=== PATIENT | female | born 1985 | race Caucasian/White ===

== ENCOUNTER 2018-03-14 21:17 | Outpatient (CLI) | payer OTHER, SELFPAY ==
[2018-03-14 21:18] VITALS: BP 116/68; PULSE 73; RESP 16; TEMP 36.1; BMI 23.6
[2018-03-14] MEDS: Rabies Vaccine,Human Diploid 2.5 UNITS Vial IM (22:47)
[2018-03-14] MEDS: Rabies Immune Globulin 150 UNITS/ML 1250 UNITS IM (22:49)
[2018-03-14] MEDS: Bupivacaine Mpf 0.5% 30 ML VIAL INFILT (23:46)
--- NOTE | 2018-03-14 23:50 | ED.VISSUMM ---
- ER Visit Summary Date of Service: 03/14/18 Chief Complaint: Cat bite History of Present Illness: The patient is a 32 F presenting for evaluation secondary to a cat bite. Patient is right-hand dominant. 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 She has had progressive swelling, now has some pain traveling up her arm. She denies constitutional symptoms such as fevers. Tetanus is up-to-date. Physical Examination: Vital signs within normal limits. Examination of the patient's right upper extremity shows a puncture wound just proximal and just distal to the midportion of the patient's dorsal index finger PIP. There is some fusiform swelling. Normal range of motion of the finger. Patient complains of pain going up her forearm and above her elbow, but no evidence of ascending lymphangitis. Test Results: None indicated Emergency Department Course and Treatment: Patient presented for evaluation secondary to a cat bite. She does have some evidence of infection. Patient was given a dose of Augmentin in the emergency department. Finger was blocked via digital block using 5 cc of bupivacaine. Good anesthesia was obtained. Finger tourniquet was placed, the patient's 2 puncture wounds were ellipsed and contaminated tissue was trimmed out with suture scissors. I explored the wounds, did not see any foreign bodies. An 18-gauge catheter was placed in the proximal wound, and then pressure irrigation was pushed through the wound, and the saline actually squirted out of the more distal wound indicating that these communicate. This was copiously irrigated. Patient was given a rabies series, and a small amount of rabies immunoglobulin was injected around the patient's finger. There is some risk for the possibility of joint capsule involvement at this point, so the patient will be given orthopedics to follow-up with. She was placed in AlumaFoam splint. She will be sent home on Augmentin. She was given strict return instructions including fever, worsening pain, significant drainage. She was instructed that she needs to follow-up with orthopedics in 1-2 days. She voiced understanding of this and the patient was discharged. Disposition: Discharge Impression: 1. Bite right index finger 2. Incision and drainage by ED physician This note was generated with [employer] software. It may contain incorrect words, spelling, and punctuation that were not noted in review of the chart prior to signing ED Disposition - Plan for ED Patient: Disposition: Home or Assisted Living Chief Complaint: Bite Diagnosis: Cat bite Instructions: ED Bite Cat Prescriptions: Amox/Clavulanate Tablet [Augmentin Tablet] 875 mg PO Q12H #20 tab Referrals: Germaine Crenshaw DO [STAFF PHYSICIAN] - 2 Days for wound check
--- NOTE | 2018-03-14 23:54 | ED.DCSUM_ITS ---
- ER Visit Summary Date of Service: 03/14/18 Chief Complaint: Cat bite History of Present Illness: The patient is a 32 F presenting for evaluation secondary to a cat bite. Patient is right-hand dominant. 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 She has had progressive swelling, now has some pain traveling up her arm. She denies constitutional symptoms such as fevers. Tetanus is up-to-date. Physical Examination: Vital signs within normal limits. Examination of the patient's right upper extremity shows a puncture wound just proximal and just distal to the midportion of the patient's dorsal index finger PIP. There is some fusiform swelling. Normal range of motion of the finger. Patient complains of pain going up her forearm and above her elbow, but no evidence of ascending lymphangitis. Test Results: None indicated Emergency Department Course and Treatment: Patient presented for evaluation secondary to a cat bite. She does have some evidence of infection. Patient was given a dose of Augmentin in the emergency department. Finger was blocked via digital block using 5 cc of bupivacaine. Good anesthesia was obtained. Finger tourniquet was placed, the patient's 2 puncture wounds were ellipsed and contaminated tissue was trimmed out with suture scissors. I explored the wounds, did not see any foreign bodies. An 18-gauge catheter was placed in the proximal wound, and then pressure irrigation was pushed through the wound, and the saline actually squirted out of the more distal wound indicating that these communicate. This was copiously irrigated. Patient was given a rabies series, and a small amount of rabies immunoglobulin was injected around the patient's finger. There is some risk for the possibility of joint capsule involvement at this point, so the patient will be given orthopedics to follow-up with. She was placed in AlumaFoam splint. She will be sent home on Augmentin. She was given strict return instructions including fever, worsening pain, significant drainage. She was instructed that she needs to follow-up with orthopedics in 1- 2 days. She voiced understanding of this and the patient was discharged. Disposition: Discharge Impression: 1. Bite right index finger 2. Incision and drainage by ED physician This note was generated with [employer] software. It may contain incorrect words, spelling, and punctuation that were not noted in review of the chart prior to signing ED Disposition - Plan for ED Patient: Disposition: Home or Assisted Living Chief Complaint: Bite Diagnosis: Cat bite Instructions: ED Bite Cat Prescriptions: Amox/Clavulanate Tablet [Augmentin Tablet] 875 mg PO Q12H #20 tab Referrals: Germaine Crenshaw DO [STAFF PHYSICIAN] - 2 Days for wound check
[2018-03-14] MEDS: Amox/Clavulanate 875 MG Tablet PO (23:55)
[2018-03-15 00:15] VITALS: BP 110/70; PULSE 69; RESP 14; O2SAT 98
--- OUTSIDE RECORDS SUMMARY | 2018-05-23 16:46 | XMS RPT_ITS ---
:1985 Author Organization OHIP Care Team Providers Name Role Phone RENEA ALVARENGAAM Referring Unavailable OLDER, MICAELA BELLO) Attending Unavailable OLDER, MICAELA (LUKAS) Referring Unavailable OLDER, MICAELA (LUKAS) Referring Unavailable SHANE LOCK Attending Unavailable SHANE LOCK Referring Unavailable Rusia, Deepam Admitting Unavailable Rusia, Deepam Attending Unavailable Rusia, Deepam Primary Care Unavailable PROVIDER, ED PHYSICIAN Attending Unavailable Aaron Aragon Primary Care Unavailable PROVIDER, ED PHYSICIAN Attending Unavailable Aaron Aragon Primary Care Unavailable Aaron Aragon Primary Care Unavailable APRIL BALLESTEROS Attending Unavailable Sidney Dickens Attending Unavailable Aaron Aragon Primary Care Unavailable PROBLEMS PROBLEMS DATE TYPE CONDITION / CODE ATTENDING STATUS SOURCE 03/15/2018 Active Open bite of other NA Active [facility] finger without [place] damage to nail, Repository subsequent encounter / S61.258D(ICD-10) 03/15/2018 Active Bitten by cat, NA Active [facility] subsequent [place] encounter / Repository W55.01XD(ICD-10) 03/28/2018 Unknown S61.230A - Sidney Dickens Active [place] Puncture wound [facility] without foreign Hospital body of right Repository index finger without damage to nail, initial encounter / S61.230A(ICD-10) 02/10/2018 Active Encounter for NA Active [facility] immunization / [place] Z23(ICD-10) Repository 09/22/2017 Active Unknown / NA Active [facility] UNK(Unknown) Other [place] Repository 09/20/2017 Active Encounter for Active [facility] screening for [place] respiratory Repository tuberculosis / Z11.1(ICD-10) PROCEDURES PROCEDURES No Procedure Records FoundRESULTS RESULTS PROGRESS Observed: 03/15/2018 Status: COMPLETED Source: [place] 2:26 PM [facility] REPOSITORY HNO ID: [id number] Author: Shane Lock Service: (none) Author Type: Physician Type: Progress Notes Filed: 03/15/2018 2:34 PM Note Text: This note was created using NanoDetection Technology. Subjective Patricio Walter is a 32 year old female here for ER follow up. PCP No primary care provider on file. 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 She was started on Augmentin and referred to ER for further evaluation. IANDD was done at the ER and orthopedic follow up was recommended. Rabies immunization was initiated. She was taking her antibiotic. Review of Systems Constitutional: Negative for chills, diaphoresis and fever. Musculoskeletal: Positive for joint swelling. Skin: Positive for color change and wound. Objective BP 106/62 (BP Site: Left Arm, BP Position: Sitting, BP Cuff Size: Regular Adult) Pulse 68 Temp (!) 35.8 ?C (96.4 ?F) (Left Tympanic) Resp 16 Wt 61.7 kg (136 lb) BMI 23.51 kg/m? Physical Exam Constitutional: No distress. Musculoskeletal: Puncture wounds of the right PIP joint with swelling, tenderness of the digit. Right hand with some dorsal swelling. Lymphangitic streaking noted up to middle of dorsal forearm. Assessment and Plan 1. Cat bite of index finger, subsequent encounter - ICD9: V58.89, 883.0, ICD10: S61.258D, W55.01XD See printed instructions or information. Close follow up recommended. Labs ordered. See orthopedics as scheduled tomorrow. Continue Augmentin. - CBC - BASIC METABOLIC PNL - SED RATE WESTERGREN - C-REACTIVE PROTEIN (CRP) Shane Lock MD CBC Collected: 03/15/2018 Status: F Source: [place] 2:21 PM [facility] REPOSITORY TYPE CODE TESTS RESULT OUT OF REFERENCE UNITS RANGE LAB WBC 3.70-11.00 k/uL WBC 7.85 LAB RBC 3.90-5.20 m/uL RBC 4.55 LAB HGB 11.5-15.5 g/dL Hemoglobin 13.9 LAB HCT 36.0-46.0 % Hematocrit 41.8 LAB MCV 80.0-100.0 fL MCV 91.9 LAB MCH 26.0-34.0 pG MCH 30.5 LAB MCHC 30.5-36.0 g/dL MCHC 33.3 LAB RDWCV 11.5-15.0 % RDW-CV 12.6 LAB PLTCT 150-400 k/uL Platelet Count 215 LAB MPV 9.0-12.7 fL MPV 9.4 LAB ABSNUC <0.01 k/uL Absolute nRBC <0.01 Performed By: #### CBC, WSR, BMP, CRP #### [facility] [address], [place] [address] SED RATE WESTERGREN Collected: 03/15/2018 Status: F Source: [place] 2:21 PM [facility] REPOSITORY TYPE CODE TESTS RESULT OUT OF REFERENCE UNITS RANGE LAB WSR 0-20 mm/hr Sed Rate Westergren 2 Performed By: #### CBC, WSR, BMP, CRP #### [facility] [place] [address], [place] [address] BASIC METABOLIC PANL Collected: 03/15/2018 Status: F Source: [place] 2:21 PM [facility] REPOSITORY TYPE CODE TESTS RESULT OUT OF REFERENCE UNITS RANGE LAB GLU 74-99 mg/dL Glucose 88 Result Comment: The [place] [employer] (ADA) provides guidance for cutoff values for fasting glucose and random glucose. The ADA defines fasting as no caloric intake for at least 8 hours. Fas ting plasma glucose results between 100 to 125 mg/dL indicate increased risk for diabetes (prediabetes). Fasting plasma glucose results greater than or equal to 126 mg/dL meet the criteria for diagnosis of diabetes. In the absence of unequivocal hyperglycemia, results should be confirmed by repeat testing. In a patient with classic symptoms of hyperglycemia or hyperglycemic crisis, random plasma glucose results greater than or equal to 200 mg/dL meet the criteria for diagnosis of diabetes. Reference: Standards of Medical Care in Diabetes 2016, [place] [employer]. Diabetes Care. 2016.39(Suppl 1). LAB BUN 7-21 mg/dL BUN 9 LAB CRET 0.58-0.96 mg/dL Creatinine 0.61 LAB NA 136-144 mmol/L Sodium 144 LAB K 3.7-5.1 mmol/L Potassium 4.1 LAB CL 97-105 mmol/L Chloride High 106 LAB CO2 22-30 mmol/L CO2 25 LAB AGAP 9-18 mmol/L Anion Gap 13 LAB CA 8.5-10.2 mg/dL Calcium, Total 9.2 LAB GFRAA eGFR- Amer. >60 LAB GFRNAA . eGFR-All Other Races >60 Result Comment: eGFR (Estimated GFR) Units of measure: mL/min/1.73 meters squared eGFR is derived from the reexpressed MDRD Study equation using the following parameters: serum creatinine, age, gender and race. The creatinine assay has been calibrated to be traceable to IDMS. An eGFR <60 mL/min/1.73m2 for >3 months is consistent with chronic kidney disease. Refer to KDOQI guidelines for clinical interpretation. In patients with unstable renal function, e.g. those with acute kidney injury, the eGFR may not accurately reflect actual GFR. Performed By: #### CBC, WSR, BMP, CRP #### [facility] [place] [address] [place], [place] [address] C-REACTIVE PROTEIN Collected: 03/15/2018 Status: F Source: [place] 2:21 PM [facility] REPOSITORY TYPE CODE TESTS RESULT OUT OF REFERENCE UNITS RANGE LAB CRP <0.9 mg/dL C-Reactive 0.4 Protein Performed By: #### CBC, WSR, BMP, CRP #### [facility] [place] [address] [place], [place] [address] 164-17 CNOV Observed: 03/15/2018 Status: COMPLETED Source: [place] 1:20 PM [facility] [place] REPOSITORY Office Visit (INTMWS) PATRICIO WALTER ([id number]) 1985 F Date Time Provider Department 03/15/18 1:20 PM SHANE LOCK INTMWS During your visit today, we recorded the following information about you: Temperature Pulse Respiration Blood pressure 96.4 degrees 68/minute 16/minute 106/62 Weight 61.7 kg Shane Lock MD 03/15/2018 2:07 PM Signed Keep area clean and dry. Change dressing if becomes wet or soiled. Return sooner if area has increased swelling, increased pain, warmth, increased redness, drainage , thick , yellow and or green. Shane Lock MD 03/15/2018 2:34 PM Signed This note was created using Nano[employer] Technology. Subjective Patricio Walter is a 32 year old female here for ER follow up. PCP No primary care provider on file. 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 She was started on Augmentin and referred to ER for further evaluation. IANDD was done at the ER and orthopedic follow up was recommended. Rabies immunization was initiated. She was taking her antibiotic. Review of Systems Constitutional: Negative for chills, diaphoresis and fever. Musculoskeletal: Positive for joint swelling. Skin: Positive for color change and wound. Objective BP 106/62 (BP Site: Left Arm, BP Position: Sitting, BP Cuff Size: Regular Adult) Pulse 68 Temp (!) 35.8 ?C (96.4 ?F) (Left Tympanic) Resp 16 Wt 61.7 kg (136 lb) BMI 23.51 kg/m? Physical Exam Constitutional: No distress. Musculoskeletal: Puncture wounds of the right PIP joint with swelling, tenderness of the digit. Right hand with some dorsal swelling. Lymphangitic streaking noted up to middle of dorsal forearm. Assessment and Plan 1. Cat bite of index finger, subsequent encounter - ICD9: V58.89, 883.0, ICD10: S61.258D, W55.01XD See printed instructions or information. Close follow up recommended. Labs ordered. See orthopedics as scheduled tomorrow. Continue Augmentin. - CBC - BASIC METABOLIC PNL - SED RATE WESTERGREN - C-REACTIVE PROTEIN (CRP) Shane Lock MD Referring Provider: SELF [200] Allergies As of Date: 03/15/2018 (No Known Allergies) Date Reviewed: 03/15/2018 Reviewed by: Chelo Bella LPN - Fully Assessed Reason for Visit: Recheck [92] Cmt: Urgent care and emergency room follow up Cat bite left 2nd digit Primary Visit Diagnosis:Cat bite of index finger, subsequent encounter [S61.258D, W55.01XD] Order(s):CBC [SQCBC] Order #: [id number] FUTURE BASIC METABOLIC PNL [SQBMP] Order #: [id number] FUTURE SED RATE WESTERGREN [SQWSR] Order #: [id number] FUTURE C-REACTIVE PROTEIN (CRP) [SQCRP] Order #: [id number] FUTURE Prescriptions as of 03/15/2018 Sig: AMOXICILLIN 875 MG-POTASSIUM * Take 1 tablet by mouth twice * Problem List As Of Date: 03/15/2018 (None) Other instructions from your clinician: Keep area clean and dry. Change dressing if becomes wet or soiled. Return sooner if area has increased swelling, increased pain, warmth, increased redness, drainage , thick , yellow and or green. Disposition: Return if symptoms worsen or fail to improve. Follow-up and Disposition History Recorded Encounter Status:Closed by SHANE LOCK MD on 03/15/18 EMERGENCY DEPARTMENT Observed: 03/15/2018 Status: F Source: [place] SUMMARY 12:43 AM [facility] REPOSITORY [facility] Medical Records Department [address] [place] [address] Emergency Department Summary 03/14/18 2190 MR#: [id number] Acct: [id number] Name: PATRICIO WALTER Rep #: [id number] : 1985 32 From: Sidney Dickens MD PCP: Aaron Aragon MD Status: DEP ER - ER Visit Summary Date of Service: 03/14/18 Chief Complaint: Cat bite History of Present Illness: The patient is a 32 F presenting for evaluation secondary to a cat bite. Patient is right-hand dominant. 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 She has had progressive swelling, now has some pain traveling up her arm. She denies constitutional symptoms such as fevers. Tetanus is up-to-date. Physical Examination: Vital signs within normal limits. Examination of the patient's right upper extremity shows a puncture wound just proximal and just distal to the midportion of the patient's dorsal index finger PIP. There is some fusiform swelling. Normal range of motion of the finger. Patient complains of pain going up her forearm and above her elbow, but no evidence of ascending lymphangitis. Test Results: None indicated Emergency Department Course and Treatment: Patient presented for evaluation secondary to a cat bite. She does have some evidence of infection. Patient was given a dose of Augmentin in the emergency department. Finger was blocked via digital block using 5 cc of bupivacaine. Good anesthesia was obtained. Finger tourniquet was placed, the patient's 2 puncture wounds were ellipsed and contaminated tissue was trimmed out with suture scissors. I explored the wounds, did not see any foreign bodies. An 18-gauge catheter was placed in the proximal wound, and then pressure irrigation was pushed through the wound, and the saline actually squirted out of the more distal wound indicating that these communicate. This was copiously irrigated. Patient was given a rabies series, and a small amount of rabies immunoglobulin was injected around the patient's finger. There is some risk for the possibility of joint capsule involvement at this point, so the patient will be given orthopedics to follow-up with. She was placed in AlumaFoam splint. She will be sent home on Augmentin. She was given strict return instructions including fever, worsening pain, significant drainage. She was instructed that she needs to follow-up with orthopedics in 1-2 days. She voiced understanding of this and the patient was discharged. Disposition: Discharge Impression: 1. Bite right index finger 2. Incision and drainage by ED physician This note was generated with XLerant dictation software. It may contain incorrect words, spelling, and punctuation that were not noted in review of the chart prior to signing ED Disposition - Plan for ED Patient: Disposition: Home or Assisted Living Chief Complaint: Bite Diagnosis: Cat bite Instructions: ED Bite Cat Prescriptions: Amox/Clavulanate Tablet [Augmentin Tablet] 875 mg PO Q12H #20 tab Referrals: Germaine Crenshaw DO [STAFF PHYSICIAN] - 2 Days for wound check What to do if you have Problems For any increased pain, shortness of breath, bleeding, nausea or vomiting, chest pain, or any unexpected problems, contact your Primary Care Provider. Call [facility] ([phone]) or report to the closest Emergency Room. Call 911 if necessary. 03/15/18 0043 <Electronically signed by Sidney Dickens MD> Date Sidney Dickens MD Cosigner Signature (If Indicated): Date CC: Aaron Aragon MD CNOV Observed: 03/14/2018 Status: COMPLETED Source: [place] 8:45 PM [facility] REPOSITORY Office Visit (WSTR) PATRICIO WALTER ([id number]) 1985 F Date Time Provider Department 03/14/18 8:45 PM SINDY MACK ([facility]) WSTR During your visit today, we recorded the following information about you: Temperature Pulse Respiration Blood pressure 97.2 degrees 74/minute 16/minute 112/80 Weight 62.1 kg Sindy Mack APRN.CNP 03/14/2018 9:00 PM Signed Subjective Patricio Walter is a 32 year old female who presents with a cat bite on her right index finger that happened today approximately 9 hours ago. 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 The cat was a stray, she is unsure of vaccination status. The cat was euthanized due to infection with feline leukemia. She is up to date on her tetanus vaccine. Review of Systems Constitutional: Negative. Negative for chills and fever. Gastrointestinal: Negative for nausea and vomiting. Musculoskeletal: Positive for myalgias (pain in right forearm). Negative for joint pain. Skin: Negative. BP 112/80 Pulse 74 Temp 36.2 ?C (97.2 ?F) (Tympanic) Resp 16 Wt 62.1 kg (136 lb 12.8 oz) BMI 23.64 kg/m? PAST MEDICAL HISTORY Diagnosis Date - MRSA (methicillin resistant Staphylococcus aureus) infection 2013 PAST SURGICAL HISTORY Procedure Laterality Date - NONE ALLERGIES Patient has no known allergies. MEDICATIONS CLOMIPHENE CITRATE (CLOMID ORAL) Take by mouth. METFORMIN HCL (GLUCOPHAGE ORAL) Take by mouth. FAMILY HISTORY Problem Relation Age of Onset - Diabetes Mother - Lipids Mother - Diabetes Father - Hypertension Father - Coronary Artery Disease Father 40 multiple [place] - None Sister - None Brother Social History Substance Use Topics - Smoking status: Never Smoker - Smokeless tobacco: Never Used - Alcohol use Yes Comment: rare Objective Physical Exam Constitutional: She is well-developed, well-nourished, and in no distress. Musculoskeletal: Hands: Skin: Skin is warm and dry. No erythema. Nursing note and vitals reviewed. ASSESSMENT/PLAN: 1. Cat bite, initial encounter - ICD9: 879.8, E906.3, ICD10: W55.01XA - AMOXICILLIN 875 MG-POTASSIUM CLAVULANATE 125 MG TABLET - testing of animal and rabies vaccine is recommended. May get at health department or emergency room. - Follow-up with your PCP in 3-5 days if symptoms have not improved or sooner if symptoms worsen - Discussed red flags and need for immediate medical evaluation if any occur. - Discussed supportive care treatment with fluids, rest and analgesia. - Discussed expected course of illness BLANCHE Chong APRN.LUKAS 03/14/2018 8:54 PM Signed ASSESSMENT/PLAN: 1. Cat bite, initial encounter - ICD9: 879.8, E906.3, ICD10: W55.01XA - AMOXICILLIN 875 MG-POTASSIUM CLAVULANATE 125 MG TABLET - testing of animal and rabies vaccine is recommended. May get at health department or emergency room. - Follow-up with your PCP in 3-5 days if symptoms have not improved or sooner if symptoms worsen - Discussed red flags and need for immediate medical evaluation if any occur. - Discussed supportive care treatment with fluids, rest and analgesia. - Discussed expected course of illness Sindy Mack APRN.CNP Referring Provider: SELF [200] Allergies As of Date: 03/14/2018 (No Known Allergies) Date Reviewed: 03/14/2018 Reviewed by: Sindy (Lukas) Frederick - Fully Assessed Reason for Visit: cat bite right hand/arm [Other] Cmt: x 8 hours-now with pain and tightness Primary Visit Diagnosis:Cat bite, initial encounter [W55.01XA] Order(s):amoxicillin-clavulanic acid (AUGMENTIN) 875-125 mg per tabletTake 1 tablet by mouth twice daily for 10 days.Disp: 20 tabletRfl: 0 Prescriptions as of 03/14/2018 Sig: AMOXICILLIN 875 MG-POTASSIUM * Take 1 tablet by mouth twice * Problem List As Of Date: 03/14/2018 (None) Other instructions from your clinician: ASSESSMENT/PLAN: 1. Cat bite, initial encounter - ICD9: 879.8, E906.3, ICD10: W55.01XA - AMOXICILLIN 875 MG-POTASSIUM CLAVULANATE 125 MG TABLET - testing of animal and rabies vaccine is recommended. May get at health department or emergency room. - Follow-up with your PCP in 3-5 days if symptoms have not improved or sooner if symptoms worsen - Discussed red flags and need for immediate medical evaluation if any occur. - Discussed supportive care treatment with fluids, rest and analgesia. - Discussed expected course of illness Sindy Mack APRN.CNP Prescriptions ordered this encounter Disp Refills Start End AMOXICILLIN 875 MG-POTASSIUM CLAVULA* 20 t* 0 03/14/2018 03/24/2018 Route: ORAL Sig: Take 1 tablet by mouth twice daily for 10 days. Medications Discontinued During This Encounter CLOMIPHENE CITRATE (CLOMID ORAL) 03/14/2018 Class: Historical Med Route: ORAL Sig: Take by mouth. Disc: Reason for discontinue is not on file. METFORMIN HCL (GLUCOPHAGE ORAL) 03/14/2018 Class: Historical Med Route: ORAL Sig: Take by mouth. Disc: Reason for discontinue is not on file. Encounter Status:Closed by SINDY MACK on 03/14/18 PROGRESS Observed: 03/14/2018 Status: COMPLETED Source: [place] 8:44 PM [facility] [place] REPOSITORY O ID: [id number] Author: Sindy ([facility]) Frederick Service: (none) Author Type: Nurse Practitioner Type: Progress Notes Filed: 03/14/2018 9:00 PM Note Text: Subjective Patricio Walter is a 32 year old female who presents with a cat bite on her right index finger that happened today approximately 9 hours ago. 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 The cat was a stray, she is unsure of vaccination status. The cat was euthanized due to infection with feline leukemia. She is up to date on her tetanus vaccine. Review of Systems Constitutional: Negative. Negative for chills and fever. Gastrointestinal: Negative for nausea and vomiting. Musculoskeletal: Positive for myalgias (pain in right forearm). Negative for joint pain. Skin: Negative. BP 112/80 Pulse 74 Temp 36.2 ?C (97.2 ?F) (Tympanic) Resp 16 Wt 62.1 kg (136 lb 12.8 oz) BMI 23.64 kg/m? PAST MEDICAL HISTORY Diagnosis Date - MRSA (methicillin resistant Staphylococcus aureus) infection 2013 PAST SURGICAL HISTORY Procedure Laterality Date - NONE ALLERGIES Patient has no known allergies. MEDICATIONS CLOMIPHENE CITRATE (CLOMID ORAL) Take by mouth. METFORMIN HCL (GLUCOPHAGE ORAL) Take by mouth. FAMILY HISTORY Problem Relation Age of Onset - Diabetes Mother - Lipids Mother - Diabetes Father - Hypertension Father - Coronary Artery Disease Father 40 multiple [place] - None Sister - None Brother Social History Substance Use Topics - Smoking status: Never Smoker - Smokeless tobacco: Never Used - Alcohol use Yes Comment: rare Objective Physical Exam Constitutional: She is well-developed, well-nourished, and in no distress. Musculoskeletal: Hands: Skin: Skin is warm and dry. No erythema. Nursing note and vitals reviewed. ASSESSMENT/PLAN: 1. Cat bite, initial encounter - ICD9: 879.8, E906.3, ICD10: W55.01XA - AMOXICILLIN 875 MG-POTASSIUM CLAVULANATE 125 MG TABLET - testing of animal and rabies vaccine is recommended. May get at health department or emergency room. - Follow-up with your PCP in 3-5 days if symptoms have not improved or sooner if symptoms worsen - Discussed red flags and need for immediate medical evaluation if any occur. - Discussed supportive care treatment with fluids, rest and analgesia. - Discussed expected course of illness Sindy Mack APRN.SERVICE ELECTRICIAN CNNURSE Observed: 02/10/2018 Status: COMPLETED Source: [place] 10:10 AM [facility] REPOSITORY Nurse Visit (CORWST) PATRICIO WALTER ([id number]) 1985 F Date Time Provider Department 02/10/18 10:10 AM NURSE [facility] During your visit today, we recorded the following information about you: Rachel Cheyanne HERNANDEZ 02/10/2018 10:08 AM Signed 32 year old female here for INACTIVATED INFLUENZA VACCINE. 9436-3443 Season Patient is identified by name and date of : Yes [] CONTRAINDICATIONS color enhanced section Age less than 6 months? No Allergy to eggs, chicken, chicken feathers, or chicken dander? No Allergy to thimerosal (a preservative) or formaldehyde, gelatin? No History of severe reaction to any vaccine component or a previous dose of influenza vaccination? No History of Guillain-[place] Syndrome within 6 weeks after a previous influenza vaccine? No Patient is not moderately or severely ill? No Current temperature greater or equal to 100.4F? No History of Bone Marrow Transplant prior 6 months or solid organ transplant in the past 3 months ? No History of fainting after a prior injection or medical procedure? No- ? If patient has fainted in the past, the CDC recommends sitting or lying down for 15 minutes after the vaccination. [] VERIFICATION color enhanced section Was the answer Yes for any of the above contraindications? No contraindications present. Acceptable to proceed with vaccine. Patient/guardian agrees the above answers are true to the best of their knowledge? Yes Flu vaccine information sheet given? Yes See immunization activity in [facility] for details of immunizations adminstered today. Patient age: [age] year old For The 9766-0577 Flu Season 6-35 months old: Fluzone 0.25 ml - IM (Preservative Free) 3 years of age: Fluzone 0.5 ml - IM (Preservative Free) 3 years and older: Fluzone 0.5 ml- IM-(with Preservatives) 65+ years old: 2-49 years old Fluzone High-Dose 0.5 ml - IM (Preservative Free) FLUMIST- intranasal REMEMBER: If patient is less than 9 years of age and this is the first vaccine of Influenza to be received in any flu season, they should receive a second dose in one months time. Referring Provider: SELF [200] Allergies As of Date: 02/10/2018 (No Known Allergies) Date Reviewed: 09/20/2017 Reviewed by: Patric Hall Bankruptcy Attorney - Fully Assessed Reason for Visit: Imm/Inj [58] Cmt: Flu Vaccine Primary Visit Diagnosis:Need for vaccination [Z23] Order(s):INFLUENZA VACCINE QUADRIVALENT AGE 3 YRS PLUS + IM [[id number]] Order #: [id number] Prescriptions as of 02/10/2018 Sig: CLOMID ORAL Take by mouth. GLUCOPHAGE ORAL Take by mouth. Problem List As Of Date: 02/10/2018 (None) Encounter Status:Closed by RACHEL LOVELACE LPN on 02/10/18 PROGRESS Observed: 02/06/2018 Status: COMPLETED Source: [place] 3:58 PM [facility] [place] REPOSITORY O ID: [id number] Author: Rachel Lovelace LPN Service: (none) Author Type: (none) Type: Progress Notes Filed: 02/10/2018 10:08 AM Note Text: 32 year old female here for INACTIVATED INFLUENZA VACCINE. 4252-2444 Season Patient is identified by name and date of : Yes [] CONTRAINDICATIONS color enhanced section Age less than 6 months? No Allergy to eggs, chicken, chicken feathers, or chicken dander? No Allergy to thimerosal (a preservative) or formaldehyde, gelatin? No History of severe reaction to any vaccine component or a previous dose of influenza vaccination? No History of Guillain-[place] Syndrome within 6 weeks after a previous influenza vaccine? No Patient is not moderately or severely ill? No Current temperature greater or equal to 100.4F? No History of Bone Marrow Transplant prior 6 months or solid organ transplant in the past 3 months ? No History of fainting after a prior injection or medical procedure? No- ? If patient has fainted in the past, the CDC recommends sitting or lying down for 15 minutes after the vaccination. [] VERIFICATION color enhanced section Was the answer Yes for any of the above contraindications? No contraindications present. Acceptable to proceed with vaccine. Patient/guardian agrees the above answers are true to the best of their knowledge? Yes Flu vaccine information sheet given? Yes [facility] for details of immunizations adminstered today. Patient age: [age] year old For The 7890-0975 Flu Season 6-35 months old: Fluzone 0.25 ml - IM (Preservative Free) 3 years of age: Fluzone 0.5 ml - IM (Preservative Free) 3 years and older: Fluzone 0.5 ml- IM-(with Preservatives) 65+ years old: 2-49 years old Fluzone High-Dose 0.5 ml - IM (Preservative Free) FLUMIST- intranasal REMEMBER: If patient is less than 9 years of age and this is the first vaccine of Influenza to be received in any flu season, they should receive a second dose in one months time. RPR Collected: 10/21/2017 Status: F Source: [place] 8:50 AM [facility] REPOSITORY TYPE CODE TESTS RESULT OUT OF REFERENCE UNITS RANGE LAB RPR Non Reactive RPR Non Reactive Performed By: #### RPR, TPAG #### [facility] [address] [address] #### NMOIFA #### [facility] [address] [address] [phone] T. PALLIDUM AB IGG Collected: 10/21/2017 Status: F Source: [place] 8:50 AM [facility] REPOSITORY TYPE CODE TESTS RESULT OUT OF REFERENCE UNITS RANGE LAB TPAGQL Negative T. pallidum IgG Negative Qual Result Comment: A negative result indicates that no, or very low levels of antibody are present in the sample, but does not rule out a recent or current infection. LAB TPABG Index Value T. pallidum, IgG .1 Result Comment: Index Values/OD Ratios are interpreted as follows: Negative specimens <0.8 Equivocal specimens 0.8 to 1.2 Positive specimens >1.2 The magnitude of the measured result above the cut-off is not indicative of the total amount of antibody present. Performed By: #### RPR, TPAG #### [facility] [address] #### NMOIFA #### [facility] [address] [place] [address] [phone] NMO AQ 4 IGG Collected: 10/21/2017 Status: F Source: [place] 8:50 AM [facility] REPOSITORY TYPE CODE TESTS RESULT OUT OF REFERENCE UNITS RANGE LAB NMOIF <1:10 NMO Aq 4 <1:10 IgG Result Comment: (NOTE) Aquaporin-4 Receptor Antibody, IgG is not detected. No further testing will be performed. INTERPRETIVE INFORMATION: Neuromyelitis Optica/AQP4-IgG w/Rfx, Ser Diagnosis of neuromyelitis optica (NMO) requires the presence of longitudinally extensive acute myelitis (lesions extending over 3 or more vertebral segments) and optic neuritis. Approximately 75 percent of patients with NMO express antibodies to the aquaporin-4 (AQP4) receptor. While the absence of AQP4 receptor antibodies does not rule out a diagnosis of NMO, presence of this antibody is diagnostic for NMO. Test developed and characteristics determined by [facility]. See Compliance Statement D: [employer]/CS Performed by [facility], [address] [place] [id number] [email or web address], Kameron Wood MD, Lab. Director Performed By: #### DEBBY, TPAG #### [facility] [address] [address] #### NMOIFA #### [facility] [address] [place] [address] [phone] MRI BRAIN WO/W Observed: 09/22/2017 Status: F Source: [facility] 7:59 PM CLINIC OTHER CAMPUS REPOSITORY * * *Final Report* * * DATE OF EXAM: Sep 22 2017 7:59PM [facility] 0295 - MRI BRAIN WO/W IVCON / PROCEDURE REASON: H46.02 OPTIC PAPPILITIS LEFT EYE * * * * Physician Interpretation * * * * EXAMINATION: MRI BRAIN WO/W IVCON CLINICAL HISTORY: H46.02 OPTIC PAPILLITIS LEFT EYE TECHNIQUE: Routine brain MRI protocol without and with contrast including diffusion images. MQ: MRBWOW_2 Contrast: 13ML mL Dotarem IV COMPARISON: None. RESULT: Acute Change: There is no evidence of restricted diffusion to suggest an acute infarct. Hemorrhage: No evidence of prior parenchymal hemorrhage on the gradient echo images. Mass Lesion/ Mass Effect: No evidence of an intracranial mass or extra-axial fluid collection. No significant mass effect. Chronic Change: The white matter is within normal limits of signal intensity for age. Parenchyma: No significant volume loss for age. The brain parenchyma is otherwise within normal limits of signal intensity and morphology. There is abnormal T2 signal involving the cisternal component of the left optic nerve, extending into the orbital apex. This also shows abnormal enhancement. T2 signal of the right optic nerve is normal. However, there is questioned minimal abnormal enhancement in the same distribution. Optic chiasm appears normal. Visual radiations and visual cortex are normal. No additional abnormal enhancement present. Ventricles: Normal caliber and morphology. Skull Base: Hypothalamic and pituitary region are grossly normal. Craniocervical junction is normal. No significant marrow replacement process. Vasculature: Major intracranial arterial structures, and dural venous sinuses show typical flow void, suggesting patency by spin echo criteria. Other: The visualized paranasal sinuses and mastoid air cells are clear. The orbits and extracranial soft tissues are unremarkable. IMPRESSION: Abnormal signal and enhancement involving the cisternal to proximal orbital portions of the left optic nerve of presumed optic neuritis. Questionable mild abnormal enhancement without T2 abnormality involving similar distribution of the right optic nerve. Remainder the examination is normal. Hydrographer[facility] Transcribe Date/Time: Sep 22 2017 8:36P Dictated by : NATASHA CARTY MD This examination was interpreted and the report reviewed and electronically signed by: NATASHA CARTY MD on Sep 22 2017 8:42PM EST [id number] CNNURSE Observed: 09/22/2017 Status: COMPLETED Source: [place] 3:00 PM [facility] REPOSITORY Nurse Visit (FAMPWS) PATRICIO WALTER ([id number]) 1985 F Date Time Provider Department 09/22/17 3:00 PM [facility] During your visit today, we recorded the following information about you: Patric Hall Cma 09/22/2017 1:29 PM Signed PPD was read by Micaela Trevino CNP documented by Patric Hall Cma Referring Provider: MICAELA TREVINO (LUKAS) [[id number]] Allergies As of Date: 09/22/2017 (No Known Allergies) Date Reviewed: 09/20/2017 Reviewed by: Patric Hall Cma - Fully Assessed Reason for Visit: PPD Read [3594] Primary Visit Diagnosis:Encounter for PPD skin test reading [Z11.1] Prescriptions as of 09/22/2017 Sig: CLOMID ORAL Take by mouth. GLUCOPHAGE ORAL Take by mouth. Problem List As Of Date: 09/22/2017 (None) Visit Notes: >> Patric Hall Cma Fri September 22, 2017 1:29 PM Status: Signed PPD was read by Micaela Trevino CNP documented by Patric Hall Cma Encounter Status:Closed by PATRIC HALL CMA on 09/22/17 XR CHEST 2V FRONTAL/LAT Observed: 09/20/2017 Status: F Source: [place] 2:03 PM [facility] REPOSITORY * * *Final Report* * * DATE OF EXAM: Sep 20 2017 2:03PM [facility] 5291 - XR CHEST 2V FRONTAL/LAT / PROCEDURE REASON: Encounter for screening for respiratory tuberculosis * * * * Physician Interpretation * * * * EXAMINATION: CHEST RADIOGRAPH (2 VIEW FRONTAL and LATERAL) Clinical History: Encounter for screening for respiratory tuberculosis MQ: XC2_5 Comparison: None. RESULT: Lines, Tubes, and Devices: N/A Lungs and Pleura: No focal infiltrates or pleural effusions. Pulmonary hyperinflation. Cardiomediastinal silhouette: Stable cardiomediastinal silhouette. Other: _ IMPRESSION: No acute radiographic abnormality. Pulmonary hyperinflation. Hydrographer: PSCRobby Transcribe Date/Time: Sep 20 2017 2:23P Dictated by : MARYELLEN DURON MD This examination was interpreted and the report reviewed and electronically signed by: MARYELLEN DURON MD on Sep 20 2017 2:24PM EST [id number] Observed: 09/20/2017 Status: COMPLETED Source: [place] 1:54 PM [facility] REPOSITORY HNO ID: [id number] Author: Heather Jama Service: (none) Author Type: (none) Type: Progress Notes Filed: 09/20/2017 2:03 PM Note Text: Radiology Service Progress Note PATIENT NAME: Patricio Walter DATE OF SERVICE: September 20, 2017 TIME: 1:54 PM PATIENT IDENTITY VERIFICATION COMPLETED USING TWO (2) METHODS: Patient confirmed name verbally and Date of . PATIENT GENDER DATA: Female. status: : No status: NO. PATIENT RELEVANT IMPLANT DATA REVIEWED: Not Applicable RADIOLOGY DEPARTMENT: General X-ray: Exam(s) Completed: Chest X-Ray PERIPHERAL IV DATA: Not applicable SIGNED BY: Heather Jama September 20, 2017 1:54 PM PROGRESS Observed: 09/20/2017 Status: COMPLETED Source: [place] 1:09 PM [facility] REPOSITORY O ID: [id number] Author: Micaela (Lukas) Older Service: (none) Author Type: Nurse Practitioner Type: Progress Notes Filed: 09/20/2017 2:26 PM Note Text: CC: Patient presents with: Physical HPI Patricio Walter is a 32 year old female who presents today for routine exam. She was actually scheduled today because her sinter feeder was requesting orders to work up for MS and she had not been seen here since 2016. Patient states she developed loss of vision in left eye, she was sent to [facility] retinal tear. 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 The sinter feeder is concerned about possible MS as the cause. He ordered an MRI that is scheduled for 09/22 and recommended consult with neurologist. Treatment plan also includes high dose steroids, needs checked for TB with chest x-ray and PPD test. Patient denies any possible exposure to TB. No travel to foreign countries and does not work in healthcare. REVIEW OF SYSTEMS General: no fevers, no chills, no night sweats, no recurrent infections, no change in appetite, no change in energy and no significant changes in weight Respiratory: no cough, no wheezing, no shortness of breath, no hemoptysis Cardiovascular: no chest pain, no chest pressure, no palpitations and no swelling Skin: Negative for lesions, rash, and itching Neurologic: Chronic, mild headaches that are no worse than usual. No weakness, numbness, tingling, neck stiffness, tremor, vertigo, dizziness, memory loss, syncope. PAST MEDICAL HISTORY Diagnosis Date - MRSA (methicillin resistant Staphylococcus aureus) infection 2013 PAST SURGICAL HISTORY Procedure Laterality Date - NONE ALLERGIES Patient has no known allergies. MEDICATIONS CLOMIPHENE CITRATE (CLOMID ORAL) Take by mouth. METFORMIN HCL (GLUCOPHAGE ORAL) Take by mouth. FAMILY HISTORY Problem Relation Age of Onset - Diabetes Mother - Lipids Mother - Diabetes Father - Hypertension Father - Coronary Artery Disease Father 40 multiple [place] - None Sister - None Brother Social History Substance Use Topics - Smoking status: Never Smoker - Smokeless tobacco: Never Used - Alcohol use Yes Comment: rare PHYSICAL EXAM BP 100/60 Pulse 71 Temp 36.7 ?C (98 ?F) (Temporal Artery) Ht 162 cm (5' 3.78) Wt 60.8 kg (134 lb) SpO2 97% BMI 23.16 kg/m? General Appearance: well appearing, in no acute distress, alert Neck: Thyroid normal size and symmetric without palpable nodules, Neck supple, No adenopathy Lymph nodes: No supraclavicular lymphadenopathy Lungs: Lungs clear to auscultation. No wheezing, rhonchi, rales Heart: RRR without murmur, gallop, or rubs. No ectopy Ext: no edema in LE bilaterally, good distal pulses ASSESSMENT/PLAN: 1. Screening examination for pulmonary tuberculosis - ICD9: V74.1, ICD10: Z11.1 (primary diagnosis) No symptoms, exam findings or past exposures concerning for TB but work-up necessary to rule out as her immune system will be compromised with high dose steroids - PPD (TB INTRADERMAL 12625) B/O - XR CHEST 2V FRONTAL/LAT 2. Optic neuritis - ICD9: 377.30, ICD10: H46.9 No other alarm symptoms or exam findings today Will wait for results of MRI before referral to neurologist. If MRI normal will defer to ophthalmology for any appropriate referral and treatment Follow-up in office as needed Prescription instructions reviewed with patient as applicable. Potential red flag symptoms discussed with the patient. Reviewed appropriate action plan to take if red flag symptoms occur. Patient agreeable to treatment plan. Micaela Trevino APRN.LUKAS CNOV Observed: 09/20/2017 Status: COMPLETED Source: [place] 1:00 PM [facility] REPOSITORY Office Visit (INTMWS) PATRICIO WALTER ([id number]) 1985 F Date Time Provider Department 09/20/17 1:00 PM MICAELA TREVINO (LUKAS) INTMWS During your visit today, we recorded the following information about you: Temperature Pulse Blood pressure Weight 98 degrees 71/minute 100/60 60.8 kg Height 1.62 m Micaela Trevino BLANCHE 09/20/2017 2:26 PM Signed CC: Patient presents with: Physical HPI Patricio Walter is a 32 year old female who presents today for routine exam. She was actually scheduled today because her sinter feeder was requesting orders to work up for MS and she had not been seen here since 2016. Patient states she developed loss of vision in left eye, she was sent to [facility] for retinal tear. 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 The sinter feeder is concerned about possible MS as the cause. He ordered an MRI that is scheduled for 09/22 and recommended consult with neurologist. Treatment plan also includes high dose steroids, needs checked for TB with chest x-ray and PPD test. Patient denies any possible exposure to TB. No travel to foreign countries and does not work in healthcare. REVIEW OF SYSTEMS General: no fevers, no chills, no night sweats, no recurrent infections, no change in appetite, no change in energy and no significant changes in weight Respiratory: no cough, no wheezing, no shortness of breath, no hemoptysis Cardiovascular: no chest pain, no chest pressure, no palpitations and no swelling Skin: Negative for lesions, rash, and itching Neurologic: Chronic, mild headaches that are no worse than usual. No weakness, numbness, tingling, neck stiffness, tremor, vertigo, dizziness, memory loss, syncope. PAST MEDICAL HISTORY Diagnosis Date - MRSA (methicillin resistant Staphylococcus aureus) infection 2013 PAST SURGICAL HISTORY Procedure Laterality Date - NONE ALLERGIES Patient has no known allergies. MEDICATIONS CLOMIPHENE CITRATE (CLOMID ORAL) Take by mouth. METFORMIN HCL (GLUCOPHAGE ORAL) Take by mouth. FAMILY HISTORY Problem Relation Age of Onset - Diabetes Mother - Lipids Mother - Diabetes Father - Hypertension Father - Coronary Artery Disease Father 40 multiple VA - None Sister - None Brother Social History Substance Use Topics - Smoking status: Never Smoker - Smokeless tobacco: Never Used - Alcohol use Yes Comment: rare PHYSICAL EXAM BP 100/60 Pulse 71 Temp 36.7 ?C (98 ?F) (Temporal Artery) Ht 162 cm (5' 3.78) Wt 60.8 kg (134 lb) SpO2 97% BMI 23.16 kg/m? General Appearance: well appearing, in no acute distress, alert Neck: Thyroid normal size and symmetric without palpable nodules, Neck supple, No adenopathy Lymph nodes: No supraclavicular lymphadenopathy Lungs: Lungs clear to auscultation. No wheezing, rhonchi, rales Heart: RRR without murmur, gallop, or rubs. No ectopy Ext: no edema in LE bilaterally, good distal pulses ASSESSMENT/PLAN: 1. Screening examination for pulmonary tuberculosis - ICD9: V74.1, ICD10: Z11.1 (primary diagnosis) No symptoms, exam findings or past exposures concerning for TB but work-up necessary to rule out as her immune system will be compromised with high dose steroids - PPD (TB INTRADERMAL 39619) B/O - XR CHEST 2V FRONTAL/LAT 2. Optic neuritis - ICD9: 377.30, ICD10: H46.9 No other alarm symptoms or exam findings today Will wait for results of MRI before referral to neurologist. If MRI normal will defer to ophthalmology for any appropriate referral and treatment Follow-up in office as needed Prescription instructions reviewed with patient as applicable. Potential red flag symptoms discussed with the patient. Reviewed appropriate action plan to take if red flag symptoms occur. Patient agreeable to treatment plan. Micaela Trevino APRN.CNP Referring Provider: SELF [200] Allergies As of Date: 09/20/2017 (No Known Allergies) Date Reviewed: 09/20/2017 Reviewed by: Patric Hall Bankruptcy Attorney - Fully Assessed Reason for Visit: Physical [83] Primary Visit Diagnosis:Screening examination for pulmonary tuberculosis [Z11.1] Other Visit Diagnosis:Optic neuritis [H46.9] Order(s):PPD (TB INTRADERMAL 84666) B/O [5895253] Order #: [id number] XR CHEST 2V FRONTAL/LAT [0290240] Order #: [id number] FUTURE Prescriptions as of 09/20/2017 Sig: CLOMID ORAL Take by mouth. GLUCOPHAGE ORAL Take by mouth. Problem List As Of Date: 09/20/2017 (None) Encounter Status:Closed by MICAELA TREVINO CNP on 09/20/17 ALLERGIES ALLERGIES DATE TYPE / CODE NAME / CODE REACTION SEVERITY SOURCE 03/17/2018 Drug No Known Unknown [facility] Allergy/416 Allergies/M35540 Hospital 181250(SNOM 0388(RXNORM) Repository ED CT) Drug/409107 No Known Religion 003(SNOMED Allergies [facility] CT) System Repository Drug NO KNOWN [facility] Class/35823 ALLERGIES Other [place] 1003(SNOMED Repository CT) ENCOUNTERS ENCOUNTERS ADMIT/DISCHARGE ACCOUNT ADMITTING ENCOUNTER LOCATION SOURCE NUMBER CLASS 03/28/2018/03/28/[id number] ing:ED Repository 03/21/[id number] [facility] ing:ED Repository 03/17/[id number] [facility] ing:ED Repository 03/15/2018/03/15/20 [id number] [address]ulatory [address] Repository 03/15/2018/03/15/20 [id number] Ambulatory [address] Repository 03/14/2018/03/15/[id number] ing:ED Repository 03/14/2018/03/15/20 [id number] Ambulatory [address] Main [place] Repository 02/10/2018/02/13/20 [id number] Ambulatory [address] Main [place] Repository 09/27/2017/11/14/19 [id number] Jayla Alvarenga Ambulatory Religion Religion [address] [place] [address] ing:CD:[id number] [facility] System 8309 Repository 09/22/2017 [id number] Ambulatory [facility] Other [place] Repository 09/22/2017/09/23/19 [id number] Ambulatory [address] Main [place] Repository 09/20/2017/09/28/19 [id number] Ambulatory [address] [place] Repository 09/20/2017/09/27/19 [id number] Ambulatory [address] [place] Repository PAYERS PAYERS ENCOUNTER GUARANTOR PAYER SUBSCRIBER SOURCE 03/28/2018 PATRICIO Otto Primary ROSA MARIAER Feroz [id number] TR Insurance:ALYSE ROJASB: [address] Number: [id number] [place] [address]Cnn: [id number] Repository Date:7728-56-84CR [address]OX (PG) 04185QZPNJGPWWBGMICKI [address]TR: 03/28/2018 Secondary NOT GIVENUNK [place] Insurance:SELF PAY [facility]: Effective Repository Date:2018-03-28 03/21/2018 PATRICIO Primary Insurance:OBWC PATRICIO BYLERDOB: [place] [id number] TP COMP MANAGEMENTPolicy [id number] [facility] RD Number: [address], [id number] Repository [place] [address]Dwr: Date:4969-72-64[address], [place] () [address]LS: 03/21/2018 Secondary CHRISTOPHER I [place] Insurance:MERITAIN [facility]DOB[facility]: [id number] [id number] Repository Date:9701-14-62DD [address] [address]AMMNXFWIRX, [place] [address]PV: 03/21/2018 Tertiary NOT GIVENUNK [place] Insurance:SELF PAY [facility] Number: Effective Repository Date:2018-03-21 03/17/2018 PATRICIO Primary Insurance:OBWC PATRICIO BYLERDOB: [place] [id number] COMP [facility] [id number] [facility] RD Number: [address], [id number] [place]ository [place] [address]Fae: Date:8961-88-08[address], [place] ([place]) [address]GA: 03/17/2018 Secondary CHRISTOPHER I [place] Insurance:MERITAIN [facility]ERDOB[facility]: [id number] Hospital [id number] Repository Date:1329-59-01OJ [address] [address]DXMXGLTZPRJ, [place] [address]NV: 03/17/2018 Tertiary NOT GIVENUNK [place] Insurance:SELF PAY [facility] Number: Effective Repository Date:2018-03-17 03/14/2018 PATRICIO Primary CHRISTOPHER I [place] [id number] Insurance:MERITAIN BYLERDOB: [facility] Number: [id number], [id number] [place]ository [place] [address]Tfx: Date:1102-87-07SG [address] [address]IFGDMZ[place], [place] () [address]GF: 03/14/2018 Secondary NOT GIVENUNK [place] Insurance:SELF PAY [facility] Effective Repository Date:2018-03-14 09/27/2017 PATRICIO A Primary PATRICIO A Religion BYCHRISTIEDOB: Insurance:Meritain BYLERDOB: [facility] [id number] HealthPolicy Number: [id number] System [facility] Effective 2 [facility] Repository [address] [place] [address], Date:2017-09-26 - [address] [place] [address] [id number] [address]Pmt: [address]Hlz: Name:CD:[id number] [address]hm[place]xcw[place], [place] ()Tel: (225) (HP) [address]KO: () [phone]
== END 2018-03-15 00:18 | disposition home or self-care (01) ==
PROVIDERS: Family Provider Family Medicine; PCP Family Medicine; Visit Provider Emergency Medicine
DX: S61.230A Puncture wound without foreign body of right index finger without damage to nail, initial encounter (principal); W55.01XA Bitten by cat, initial encounter; Y93.9 Activity, unspecified; Y92.9 Unspecified place or not applicable; Y99.9 Unspecified external cause status; Z23 Encounter for immunization
CPT/HCPCS: 10140; 90375; 90675; 99285

== ENCOUNTER → 2018-03-17 11:38 | Outpatient (CLI) | payer OTHER, SELFPAY ==
[2018-03-14 21:18] VITALS: BMI 23.6
[2018-03-17 11:24] VITALS: BP 112/57; PULSE 69; RESP 15; TEMP 36.7; O2SAT 100; BMI 23.3
[2018-03-17] MEDS: Rabies Vaccine,Human Diploid 2.5 UNITS Vial IM (11:26)
== END ==
PROVIDERS: Family Provider Family Medicine; PCP Family Medicine
DX: Z23 Encounter for immunization (principal)
CPT/HCPCS: 90675; 96372

== ENCOUNTER → 2018-03-21 10:00 | Outpatient (CLI) | payer OTHER, SELFPAY ==
[2018-03-17 11:24] VITALS: BMI 23.3
[2018-03-21 09:45] VITALS: BP 107/62; PULSE 78; RESP 18; TEMP 36.6; O2SAT 98; BMI 23.3
[2018-03-21] MEDS: Rabies Vaccine,Human Diploid 2.5 UNITS Vial IM (10:00)
== END ==
PROVIDERS: Family Provider Family Medicine; PCP Family Medicine
DX: Z23 Encounter for immunization (principal)
CPT/HCPCS: 90675; 96372

== ENCOUNTER 2018-03-28 08:38 | Outpatient (CLI) | payer OTHER, SELFPAY ==
[2018-03-21 09:45] VITALS: BMI 23.3
[2018-03-28 08:58] VITALS: BP 124/67; PULSE 71; RESP 15; TEMP 36.3; O2SAT 99; BMI 23.6
[2018-03-28 09:18] VITALS: BP 124/67; PULSE 71; RESP 15; TEMP 36.3; O2SAT 99; BMI 23.6
[2018-03-28] MEDS: Rabies Vaccine,Human Diploid 2.5 UNITS Vial IM (09:20)
--- OUTSIDE RECORDS SUMMARY | 2018-05-23 17:41 | XMS RPT_ITS ---
[...] Care Unavailable Aaron Aragon Primary Care Unavailable PARIL BALLESTEROS Attending Unavailable Sidney Dickens Attending Unavailable Aaron Aragon Primary Care Unavailable PROBLEMS PROBLEMS DATE TYPE CONDITION / CODE ATTENDING STATUS SOURCE 03/15/2018 Active Open bite of other NA Active [facility] finger without [place] damage to nail, Repository subsequent encounter / S61.258D(ICD-10) 03/15/2018 Active Bitten by cat, NA Active [facility] subsequent [place] encounter / Repository W55.01XD(ICD-10) 03/28/2018 Unknown S61.230A - Sidney Dickens Active [facility] Puncture wound [facility] without foreign Hospital body of right Repository index finger without damage to nail, initial encounter / S61.230A(ICD-10) 02/10/2018 Active Encounter for NA Active [facility] immunization / [place] Z23(ICD-10) Repository 09/22/2017 Active Unknown / NA Active [facility] UNK(Unknown) [place] Repository 09/20/2017 Active Encounter for Active [facility] screening for [place] respiratory Repository tuberculosis / Z11.1(ICD-10) PROCEDURES PROCEDURES No Procedure Records FoundRESULTS RESULTS PROGRESS Observed: 03/15/2018 Status: COMPLETED Source: [place] 2:26 PM [facility] REPOSITORY HNO ID: [id number] Author: Shane Lock Service: (none) Author Type: Physician Type: Progress Notes Filed: 03/15/2018 2:34 PM Note Text: This note was created using APProtect. Subjective Patricio Walter is a 32 year old female here for ER follow up. PCP No primary care provider on file. 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 [...] MD CBC Collected: 03/15/2018 Status: F Source: [place] 2:21 PM [facility] REPOSITORY TYPE CODE TESTS RESULT OUT OF [...] By: #### CBC, WSR, BMP, CRP #### [facility] [address] [place], [place] [address] SED RATE WESTERGREN Collected: 03/15/2018 Status: F Source: [place] 2:21 PM [facility] REPOSITORY TYPE CODE TESTS RESULT OUT OF REFERENCE UNITS RANGE LAB WSR 0-20 mm/hr Sed Rate Westergren 2 Performed By: #### CBC, WSR, BMP, CRP #### [facility] [employer] [address] [place], [place] [address] BASIC METABOLIC PANL Collected: 03/15/2018 Status: F Source: [place] 2:21 PM [facility] REPOSITORY TYPE CODE TESTS RESULT OUT OF REFERENCE UNITS RANGE LAB GLU 74-99 mg/dL Glucose 88 Result Comment: The [place] [employer] (ADA) provides guidance for cutoff [...] Standards of Medical Care in Diabetes 2016, [place] [employer]. Diabetes Care. 2016.39(Suppl 1). LAB [...] By: #### CBC, WSR, BMP, CRP #### [facility] [employer] [address] [place], [place] [address] C-REACTIVE PROTEIN Collected: 03/15/2018 Status: F Source: [place] 2:21 PM [facility] REPOSITORY TYPE CODE TESTS RESULT OUT OF REFERENCE UNITS RANGE LAB CRP <0.9 mg/dL C-Reactive 0.4 Protein Performed By: #### CBC, WSR, BMP, CRP #### [facility] [employer] [address] [place], [place] [address] [phone] CNOV Observed: 03/15/2018 Status: COMPLETED Source: [place] 1:20 PM [facility] [place] REPOSITORY Office Visit (INTMWS) PATRICIO WALTER ([id number]) 1985 F Date Time Provider Department 03/15/18 [...] PM Signed This note was created using APProtect. Subjective Patricio Walter is a 32 year old female here for ER follow up. PCP No primary care provider on file. 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 [...] encounter [S61.258D, W55.01XD] Order(s):CBC [SQCBC] Order #: [id number] FUTURE BASIC METABOLIC PNL [SQBMP] Order #: [id number] FUTURE SED RATE WESTERGREN [SQWSR] Order #: [id number] FUTURE C-REACTIVE PROTEIN (CRP) [SQCRP] Order #: [id number] FUTURE Prescriptions as of 03/15/2018 Sig: AMOXICILLIN [...] EMERGENCY DEPARTMENT Observed: 03/15/2018 Status: F Source: [place] SUMMARY 12:43 AM [facility] [place] REPOSITORY [facility] Medical Records Department [address] [place] [address] Emergency Department Summary 03/14/18 3650 MR#: [id number] Acct: [id number] Name: PATRICIO WALTER Rep #: [id number] : 1985 32 From: Sidney Dickens MD PCP: Aaron Aragon MD Status: DEP ER - ER Visit Summary Date of Service: 03/14/18 Chief Complaint: Cat bite History of Present Illness: The patient is a 32 F presenting for evaluation secondary to a cat bite. Patient is right-hand dominant. She reports that she was trying to pickle sorter a stray cat, was bit on the [...] ED physician This note was generated with [employer] dictation software. It may contain incorrect words, [...] your Primary Care Provider. Call [facility] ([phone]) or report to the closest Emergency Room. Call 911 if necessary. 03/15/18 0043 <Electronically signed by Sidney Dickens MD> Date Sidney Dickens MD Cosigner Signature (If Indicated): Date CC: Aaron Aragon MD CNOV Observed: 03/14/2018 Status: COMPLETED Source: [place] 8:45 PM [facility] REPOSITORY Office Visit (WSTR) PATRICIO WALTER ([id number]) 1985 F Date Time Provider Department 03/14/18 8:45 PM SINDY MACK ([facility]) WSTR During your visit today, we recorded the following information about you: Temperature Pulse Respiration Blood pressure 97.2 degrees 74/minute 16/minute 112/80 Weight 62.1 kg Sindy Mack APRN.CNP 03/14/2018 9:00 PM Signed Subjective Patricio Walter is a 32 year old female who presents with a cat bite on her right index finger that happened today approximately 9 hours ago. 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 She [...] - Coronary Artery Disease Father 40 multiple CO - None Sister - None Brother Social [...] 03/14/18 PROGRESS Observed: 03/14/2018 Status: COMPLETED Source: [place] 8:44 PM [facility] [place] REPOSITORY O ID: [id number] Author: Sindy ([facility]) [place] Service: (none) Author Type: Nurse Practitioner Type: Progress Notes Filed: 03/14/2018 9:00 PM Note Text: Subjective Patricio Walter is a 32 year old female who presents with a cat bite on her right index finger that happened today approximately 9 hours ago. 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 She [...] - Coronary Artery Disease Father 40 multiple CO - None Sister - None Brother Social [...] Discussed expected course of illness Sindy Mack APRN.LUMP RECEIVER CNNURSE Observed: 02/10/2018 Status: COMPLETED Source: [place] 10:10 AM [facility] REPOSITORY Nurse Visit (CORWST) PATRICIO WALTER ([id number]) 1985 F Date Time Provider Department 02/10/18 10:10 AM NURSE [facility] CORWST During your visit today, we recorded the following information about you: Rachel Cheyanne HERNANDEZ 02/10/2018 10:08 AM Signed 32 year old female here for INACTIVATED INFLUENZA VACCINE. 0967-9684 Season Patient is identified by name and date of : Yes [] CONTRAINDICATIONS color enhanced section Age less than 6 months? No Allergy to eggs, chicken, chicken feathers, or chicken dander? No Allergy to thimerosal (a preservative) or formaldehyde, gelatin? No History of severe reaction to any vaccine component or a previous dose of influenza vaccination? No History of Guillain-[place] Syndrome within 6 weeks after a previous [...] sheet given? Yes See immunization activity in [facility] for details of immunizations adminstered today. Patient age: [age] year old For The 9678-8592 Flu Season 6-35 months old: Fluzone 0.25 [...] Date Reviewed: 09/20/2017 Reviewed by: Patric Hall Asset Protection Detective - Fully Assessed Reason for Visit: Imm/Inj [58] Cmt: Flu Vaccine Primary Visit Diagnosis:Need for vaccination [Z23] Order(s):INFLUENZA VACCINE QUADRIVALENT AGE 3 YRS PLUS + IM [[id number]] Order #: [id number] Prescriptions as of 02/10/2018 Sig: CLOMID ORAL Take by mouth. GLUCOPHAGE ORAL Take by mouth. Problem List As Of Date: 02/10/2018 (None) Encounter Status:Closed by RACHEL LOVELACE LPN on 02/10/18 PROGRESS Observed: 02/06/2018 Status: COMPLETED Source: [place] 3:58 PM [facility] [place] REPOSITORY O ID: [id number] Author: Rachel Lovelace LPN Service: (none) Author Type: (none) Type: Progress Notes Filed: 02/10/2018 10:08 AM Note Text: 32 year old female here for INACTIVATED INFLUENZA VACCINE. 3477-3440 Season Patient is identified by name and date of : Yes [] CONTRAINDICATIONS color enhanced section Age less than 6 months? No Allergy to eggs, chicken, chicken feathers, or chicken dander? No Allergy to thimerosal (a preservative) or formaldehyde, gelatin? No History of severe reaction to any vaccine component or a previous dose of influenza vaccination? No History of Guillain-[place] Syndrome within 6 weeks after a previous [...] sheet given? Yes [facility] of immunizations adminstered today. Patient age: [age] year old For The 8174-0111 Flu Season 6-35 months old: Fluzone 0.25 [...] time. RPR Collected: 10/21/2017 Status: F Source: [place] 8:50 AM [facility] REPOSITORY TYPE CODE TESTS RESULT OUT OF REFERENCE UNITS RANGE LAB RPR Non Reactive RPR Non Reactive Performed By: #### RPR, TPAG #### [facility] [address] [place] [address] #### NMOIFA #### [facility] [address] [address] [phone] T. PALLIDUM AB IGG Collected: 10/21/2017 Status: F Source: [place] 8:50 AM [facility] REPOSITORY TYPE CODE TESTS RESULT OUT OF [...] present. Performed By: #### RPR, TPAG #### [facility] [employer] [facility] [address] #### NMOIFA #### [facility] [address] [place] [address] [phone] NMO AQ 4 IGG Collected: 10/21/2017 Status: F Source: [place] 8:50 AM [facility] REPOSITORY TYPE CODE TESTS RESULT OUT OF [...] NMO. Test developed and characteristics determined by [facility]. See Compliance Statement D: [employer] Performed by [facility], [address] [place] [id number] [email or web address], Kameron Wood MD, Lab. Director Performed By: #### DEBBY, TPAG #### [facility] [address] [address] #### NMOIFA #### [facility] [address] [place] [address] [phone] MRI BRAIN WO/W Observed: 09/22/2017 Status: F Source: [facility] 7:59 PM CLINIC OTHER CAMPUS REPOSITORY * * *Final Report* * * DATE OF EXAM: Sep 22 2017 7:59PM [facility] 0295 - MRI BRAIN WO/W IVCON / [...] optic nerve. Remainder the examination is normal. Dispatcher Service [facility] Transcribe Date/Time: Sep 22 2017 8:36P Dictated by : NATASHA CARTY MD This examination was interpreted and the report reviewed and electronically signed by: NATASHA CARTY MD on Sep 22 2017 8:42PM EST [id number] CNNURSE Observed: 09/22/2017 Status: COMPLETED Source: [place] 3:00 PM [facility] REPOSITORY Nurse Visit (FAMPWS) PATRICIO WALTER ([id number]) 1985 F Date Time Provider Department 09/22/17 3:00 PM [place] NURSE FAMPWS During your visit today, we recorded the following information about you: Patric Hall Cma 09/22/2017 1:29 PM Signed PPD was read by Micaela Trevino CNP documented by Patric Hall Cma Referring Provider: MICAELA TREVINO ([facility]) [[id number]] Allergies As of Date: 09/22/2017 (No Known [...] 2V FRONTAL/LAT Observed: 09/20/2017 Status: F Source: [place] 2:03 PM [facility] REPOSITORY * * *Final Report* * * [...] IMPRESSION: No acute radiographic abnormality. Pulmonary hyperinflation. Dispatcher Service Or Work: [employer] Transcribe Date/Time: Sep 20 2017 2:23P Dictated by : MARYELLEN DURON MD This examination was interpreted and the report reviewed and electronically signed by: MARYELLEN DURON MD on Sep 20 2017 2:24PM EST [id number] PROGRESS Observed: 09/20/2017 Status: COMPLETED Source: [place] 1:54 PM [facility] REPOSITORY HNO ID: [id number] Author: Heather Jama Service: (none) Author Type: [...] PM PROGRESS Observed: 09/20/2017 Status: COMPLETED Source: [place] 1:09 PM [facility] [place] REPOSITORY O ID: [id number] Author: Micaela ([facility]) Older Service: (none) Author Type: Nurse Practitioner Type: Progress Notes Filed: 09/20/2017 2:26 PM Note Text: CC: Patient presents with: Physical HPI Patricio Walter is a 32 year old female who presents today for routine exam. 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 Patient states she developed loss of vision in left eye, she was sent to [facility] for retinal tear. 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 The open claims representative is concerned about possible MS as the [...] - Coronary Artery Disease Father 40 multiple CO - None Sister - None Brother Social [...] high dose steroids - PPD (TB INTRADERMAL 27677) B/O - XR CHEST 2V FRONTAL/LAT 2. 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 Patient states she developed loss of vision in left eye, she was sent to [facility] for retinal tear. 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 The open claims representative is concerned about possible MS as the [...] - Coronary Artery Disease Father 40 multiple CO - None Sister - None Brother Social [...] high dose steroids - PPD (TB INTRADERMAL 89119) B/O - XR CHEST 2V FRONTAL/LAT 2. [...] Date Reviewed: 09/20/2017 Reviewed by: Patric Hall Asset Protection Detective - Fully Assessed Reason for Visit: Physical [83] Primary Visit Diagnosis:Screening examination for pulmonary tuberculosis [Z11.1] Other Visit Diagnosis:Optic neuritis [H46.9] Order(s):PPD (TB INTRADERMAL 01092) B/O [2125903] Order #: [id number] XR CHEST 2V FRONTAL/LAT [5513797] Order #: [id number] FUTURE Prescriptions as of 09/20/2017 Sig: CLOMID ORAL Take by mouth. GLUCOPHAGE ORAL Take by mouth. Problem List As Of Date: 09/20/2017 (None) Encounter Status:Closed by MICAELA TREVINO CNP on 09/20/17 ALLERGIES ALLERGIES DATE TYPE / CODE NAME / CODE REACTION SEVERITY SOURCE 03/17/2018 Drug No Known Unknown [facility] Allergy/416 Allergies/F49813 Hospital 205328(SNOM 0388(RXNORM) Repository ED CT) Drug/503196 No Known [facility] 003(SNOMED Allergies [facility] CT) System Repository Drug NO KNOWN [facility] Class/87294 ALLERGIES [place] 1003(SNOMED Repository CT) ENCOUNTERS ENCOUNTERS ADMIT/DISCHARGE ACCOUNT ADMITTING ENCOUNTER LOCATION SOURCE NUMBER CLASS 03/28/2018/03/28/[id number] ing:ED Repository 03/21/2018 [id number] [facility] ing:ED Repository 03/17/2018 [id number] [facility] ing:ED Repository 03/15/2018/03/15/20 [id number] Ambulatory [address] Repository 03/15/2018/03/15/20 [id number] Ambulatory [address] Repository 03/14/2018/03/15/[id number] ing:ED Repository 03/14/2018/03/15/20 [id number] Ambulatory [address] [place] Repository 02/10/2018/02/13/20 [id number] Ambulatory [address] [place] Repository 09/27/2017/11/14/19 [id number] Jayla Alvarenga Ambulatory [facility] [address] [place] [address] ing:CD:[id number] [facility] System 8309 Repository 09/22/2017 [id number] Ambulatory [facility] Other [place] Repository 09/22/2017/09/23/19 [id number] Ambulatory [address] [place] Repository 09/20/2017/09/28/19 [id number] Ambulatory [address] [place] Repository 09/20/2017/09/27/19 [id number] Ambulatory [address] [place] Repository PAYERS PAYERS ENCOUNTER GUARANTOR PAYER SUBSCRIBER SOURCE 03/28/2018 PATRICIO Otto Primary ROSA MARIAER Feroz [id number] TR Insurance:ALSYE ROJASB: [address] Number: [id number] [address]Ppo: [id number] Repository Date:9673-22-43[address]) [address]RC[address]TMZ[address]MICKI [address]LD: 03/28/2018 Secondary NOT GIVENUNK [place] Insurance:SELF PAY [facility] Number: Effective Repository Date:2018-03-28 03/21/2018 PATRICIO Primary Insurance:OBWC PATRICIO BYLERDOB: [place] [id number] TP COMP MANAGEMENTPolicy [id number] [facility] [address] Number: [address], [id number] Repository [place] [address]Ncl: Date:4620-73-44[address], [place] () [address]TG: 03/21/2018 Secondary CHRISTOPHER I [place] Insurance:MERITAIN BYLERDOB[facility] Number: [id number] Hospital [id number] Repository Date:3259-72-06[address] [address]KAFSOZ[place], [place] [address]YZ: 03/21/2018 Tertiary NOT GIVENUNK [place] Insurance:SELF PAY [facility] Number: Effective Repository Date:2018-03-21 03/17/2018 PATRICIO Primary Insurance:OBWC PATRICIO BYLERDOB: [place] [id number] COMP [facility] [id number] [facility] [address] Number: [address], [id number] Repository [place] [address]Soq: Date:3982-57-71[address], [place] ([place]) [address]XJ: 03/17/2018 Secondary CHRISTOPHER I [place] Insurance:MERITAIN BYLERDOB: [facility] Number: [id number] Hospital [id number] Repository Date:5708-14-09[address] [address]XPRAN[place], [place] [address]SX: 03/17/2018 Tertiary NOT GIVENUNK [place] Insurance:SELF PAY [facility] Number: Effective Repository Date:2018-03-17 03/14/2018 PATRICIO Primary CHRISTOPHER I [place] [id number] Insurance:MERITAIN BYLERDOB: Community HEALTHPolicy Number: [id number], [id number] Repository [place] [address]Wko: Date:7463-04-06[address] [address]EQBMURZNN, [place] () [address]LH: 03/14/2018 Secondary NOT GIVENUNK [place] Insurance:SELF PAY [facility] Number: Effective Repository Date:2018-03-14 09/27/2017 PATRICIO A Primary PATRICIO A Judaism BYCHRISTIEDOB: Insurance:Meritain BYLERDOB: [facility] [id number] HealthPolicy Number: [id number] System [facility] Effective 2 [facility] Repository [address] [place] [address], Date:2017-09-26 - [address] [place] [address] [id number] [address]Hua: [phone]: Name:CD:[id number]Dojzusxhxz, [place] ()Tel: (226) (HP) [address]BB: () [phone]
== END 2018-03-28 09:20 | disposition home or self-care (01) ==
LOC: ED 09:57
PROVIDERS: Family Provider Family Medicine; PCP Family Medicine; Visit Provider Emergency Medicine
DX: Z23 Encounter for immunization (principal)
CPT/HCPCS: 90675; 96372

== ENCOUNTER → 2018-06-07 13:27 | Outpatient (CLI) | payer OTHER, SELFPAY ==
[2018-06-12 10:55] LABS: HPV Reflexed? NOT INDICATED
== END ==
PROVIDERS: Visit Provider Obstetrics & Gynecology
DX: Z12.4 Encounter for screening for malignant neoplasm of cervix (principal)
CPT/HCPCS: 87624; 88175; G0145

== ENCOUNTER → 2022-01-21 | Outpatient (CLI) | payer BC, SELFPAY ==
[2022-01-28 13:57] LABS: HPV APTIMA, High Risk Negative (Negative)
== END | disposition home or self-care (01) ==
LOC: LABSPEC 16:19
PROVIDERS: Visit Provider Obstetrics & Gynecology
DX: Z12.4 Encounter for screening for malignant neoplasm of cervix (principal)
CPT/HCPCS: 87624; 88175; G0145

== ENCOUNTER → 2022-03-31 | Outpatient (CLI) | payer BC, SELFPAY ==
[2022-04-09 13:25] LABS: HPV APTIMA, High Risk Negative (Negative)
== END | disposition home or self-care (01) ==
LOC: LABSPEC 13:40
PROVIDERS: Visit Provider Obstetrics & Gynecology
DX: Z12.4 Encounter for screening for malignant neoplasm of cervix (principal)
CPT/HCPCS: 87624; 88175; G0145

== ENCOUNTER 2023-04-01 14:23 | Emergency (ER) | payer BC, SELFPAY ==
[2023-04-01 14:23] VITALS: BP 117/70; PULSE 77; RESP 16; TEMP 35.9; O2SAT 98; BMI 24.6
[2023-04-01] MEDS: Ondansetron ODT 4 MG Tablet PO (15:24)
[2023-04-01] MEDS: Dicyclomine 20 MG/2 ML Vial IM (15:24)
--- NOTE | 2023-04-01 15:32 | RAD_ITS ---
EXAM: XR ABDOMEN, 2 VIEWS AND XR CHEST, 1 VIEW CLINICAL INDICATION: abdominal pain TECHNIQUE: Frontal view of the chest, frontal view of the abdomen/pelvis and upright or decubitus view of the abdomen. COMPARISON: No relevant prior studies available. FINDINGS: CHEST: LUNGS AND PLEURAL SPACES: No consolidation or edema. No pneumothorax. No effusion. HEART: Normal. Normal heart size. MEDIASTINUM: No mediastinal or hilar mass. ABDOMEN: INTRAPERITONEAL SPACE: No free air. GASTROINTESTINAL TRACT: Normal bowel gas pattern. ORGANS: Unremarkable as visualized. No organomegaly. No abnormal calcifications. TUBES, LINES AND DEVICES: None. BONES/JOINTS: No acute abnormality. SOFT TISSUES: No acute findings. RAD/Acute Abdomen Inc Chest IMPRESSION: Normal chest and abdominal series. Electronically Signed: Paul Welch MD at 15:53 EST ,
--- NOTE | 2023-04-01 15:45 | EDS_ITS ---
HPI HPI - GI History of Present Illness Chief Complaint: Abd Pain Narrative Narrative: 37-year-old female presenting with abdominal pain. She describes it as aching and diffusely cramping. Patient states this started after eating sausages, meatballs, potatoes. She states it was a family dinner. She is the only one that developed symptoms. No fevers or chills. Mild nausea. Patient denies diarrhea. Patient states no sick contacts. Patient denies any urinary or vaginal complaints. Her only abdominal surgery is hysterectomy which was done earlier this year. No complications. Patient denies history of obstructions. Patient states that since 1:00 when she started eating the food or since the pain has gone down significantly. PFSH PFSH Medical History no medical history Home Medications amoxicillin 875 mg-potassium clavulanate 125 mg tablet 875 mg (0.875 x 875-125 mg) PO Q12H #20 tabs 03/14/18 [Rx Last Taken Unknown] dicyclomine 10 mg capsule 20 mg (2 x 10 mg) PO TID #20 caps 04/01/23 [Rx Last Taken Unknown] ondansetron 4 mg disintegrating tablet 4 mg PO Q8H PRN PRN Nausea #14 tabs 04/01/23 [Rx Last Taken Unknown] Allergy/AdvReac Type Severity Reaction Status Date / Time No Known Allergies Allergy Verified 04/01/23 14:23 Social History Smoking Status: Never smoker ROS ROS ED Constitutional Constitutional ED: Denies chills, fever(s) or sweats Eyes Eyes: Denies blurry vision or change in vision ENT ENT ED: Denies ear pain or sore throat Cardiovascular Cardiovascular: Denies chest pain, palpitations or racing heartbeat Respiratory/Chest Respiratory/Chest: Denies cough, dyspnea or sputum Gastrointestinal Gastrointestinal: Reports abdominal pain, nausea and vomiting; Denies constipation Genitourinary Genitourinary ED: Denies dysuria, hematuria or urinary frequency Musculoskeletal Musculoskeletal: Denies arthralgias, myalgias or neck pain Integumentary Denies abscess, Abrasions or rash Neurologic Neurologic: Denies headache(s), paresthesias or weakness Psychiatric Psychiatric: Denies anxiety, depression, suicidal ideation or suicidal thoughts Endocrine Endocrinology: Denies polydipsia or polyuria EXAM Physical Exam Const Vital Signs: 04/01/23 14:23 Temperature 96.7 F L Temperature Source Temporal Pulse Rate 77 Respiratory Rate 16 Blood Pressure 117/70 Blood Pressure Mean 85 Pulse Ox 98 Oxygen Delivery Method Room Air Positive well nourished HEENT Reports moist mucous membranes normocephalic and atraumatic Eyes PERRL and EOMs intact bilaterally Resp normal respiratory effort Auscultation: Negative for rales, rhonchi or wheezes Cardio regular rate and regular rhythm GI non-tender, non-distended and no masses Back/Spine no CVA tenderness Neuro CN's II-XII intact bilaterally Sensorium / Orientation: alert Motor Exam: strength 5/5 throughout Psych mental status grossly normal and thought process normal Skin no wounds MDM MDM MDM Narrative Medical decision making narrative: 37-year-old female presenting with bloating and crampy abdominal pain. Most likely this is due to the food she ate. Patient does not have any right upper quadrant pain or Sahu sign. Abdominal exam is benign. She medicated Zofran and Bentyl. I will obtain a acute abdominal series. Pain better at reevaluation at 1640. Patient was given Bentyl and Zofran for home. Return precautions discussed. Boyle diet was also discussed. Impression: 1. Abdominal pain 2. Nausea Radiography Diagnostic Testing: Clinical Impression(s) from Imaging Studies Acute Abdomen Series 04/01/23 15:32 IMPRESSION: Normal chest and abdominal series. Electronically Signed: Paul Welch MD at 15:53 EST , Discharge Plan Triage Chief Complaint: Abd Pain ED Provider: Triston Zhang Dx/Rx/DC Orders Instructions: ED Abdominal Pain Unkn Cause Fem Prescriptions: New ondansetron 4 mg tablet,disintegrating 4 mg PO Q8H PRN PRN (Reason: Nausea) Qty: 14 0RF dicyclomine 10 mg capsule 20 mg PO TID Qty: 20 0RF No Action amoxicillin-pot clavulanate 875 MG tablet 875 mg PO Q12H Qty: 20 0RF Primary Care Provider: Shane Berry Referrals: Shane Berry MD [Primary Care Provider] - Disposition Disposition: Home, Self Care
[2023-04-01 16:23] VITALS: BP 120/68; PULSE 78; RESP 16; O2SAT 98
== END 2023-04-01 17:08 | disposition home or self-care (01) ==
PROVIDERS: Emergency Provider Student in an Organized Health Care Education/Training Program; PCP Internal Medicine; Visit Provider Student in an Organized Health Care Education/Training Program
DX: R10.9 Unspecified abdominal pain (principal); R11.0 Nausea; R14.0 Abdominal distension (gaseous); Z90.710 Acquired absence of both cervix and uterus
CPT/HCPCS: 74022; 96372; 99283